=== PATIENT | male | born 1995 | race African-American/Black ===

== ENCOUNTER 2018-05-25 17:34 | Emergency (ER) | payer OTHER ==
[~2018-05-25] VITALS: Ht 182.9 cm; Wt 90.7 kg
[2018-05-25] MEDS ORDERED: LIDOCAINE 1% INJ 20 ML 20 ML VIAL INJ ONE (19:00)
--- NOTE | 2018-05-25 19:06 | ED Integumentary General ---
General Chief Complaint: Laceration Stated Complaint: TOP LIP LAC Nursing Triage Note: Bit lip while in football practice. Has small cut on inner left lip. Source: patient History of Present Illness Date Seen by Provider: May 25, 2018 Time Seen by Provider: 18:42 Initial Comments 23 yo M with inner upper lip laceration that happened around 1730 tonight at football practice. He went for the ball and accidentally hit another player's shoulder. In the process he bit down on his lips and caused a cut inside his upper lip that does gap some and is bleeding. He denies having any dental pain or loose teeth. He denies having any jaw pain. He did not bite all the way through the lip. Timing/Duration: just prior to arrival Severity: mild Location: face (inner upper lip) Allergies and Home Medications Allergies Coded Allergies: No Known Drug Allergies (Unverified , 05/25/18) Patient Home Medication List Home Medication List Reviewed: Yes Review of Systems Review of Systems Constitutional: No fever, No malaise EENTM: see HPI, mouth pain (inside of his lips), mouth swelling (upper lip); No dental problems, No epistaxis, No nose pain, No throat pain, No throat swelling Respiratory: no symptoms reported Cardiovascular: no symptoms reported Gastrointestinal: no symptoms reported Skin: see HPI Past Qsjrdtu-Tzuzrk-Upigzw Hx Past Med/Social Hx: Reviewed Nursing Past Med/Soc Hx Patient Social History Recent Foreign Travel: No Contact w/Someone Who Travel: No Recent Infectious Disease Expo: No Past Medical History Surgeries: No Physical Exam Vital Signs Vital Signs - First Documented 05/25/18 18:27 Temp 98.7 Pulse 73 Resp 16 B/P (MAP) 133/72 (92) Pulse Ox 100 Capillary Refill : Less Than 3 Seconds General Appearance: WD/WN, no apparent distress HEENT: PERRL/EOMI, other (2.5 cm laceration to the inner upper lip on the lateral side.) Neck: non-tender, full range of motion, supple, normal inspection Cardiovascular: regular rate, rhythm Respiratory: chest non-tender, lungs clear, normal breath sounds Neurologic/Psychiatric: alert, oriented x 3 Skin: normal color, warm/dry Procedures/Interventions Wound Location: Face (inner upper lip) Wound Length (cm): 3 Wound's Depth, Shape: sub Q Wound Explored: contaminated (intraoral laceration) Anesthesia: 1% Lidocaine Volume Anesthetic (ccs): 2 Wound Debrided: minimal Suture: Plain (gut) Suture Size: 4-0 Number of Sutures: 2 Layer Closure?: 1 Progress Wound was anesthetized with 1 % plain Lidocaine. He then had it cleaned with sterile water and gauze. Using 4-0 Gut suture 2 simple interrupted stitches were placed to approximate the wound edges and keep the wound from gaping so that it would heal faster and not have food particles get stuck in it. There was a small piece of skin that was hanging off of the edge of the wound that was removed so that it would not continue to hang from the cut. He tolerated the procedure well and had no immediate complications. Counseled on follow up and return precautions. Progress/Results/Core Measures Results/Orders My Orders Orders - BETTYE FELTON MD Lidocaine 1% Inj 20 Ml (Xylocaine 1% Inj (05/25/18 19:00) Medications Given in ED Current Medications Medications Dose Ordered Sig/Sandie Route Start Time Stop Time Status Last Admin Dose Admin Lidocaine HCl 20 ml ONCE ONCE INJ 05/25/18 19:00 05/25/18 19:02 DC 05/25/18 19:50 20 ML Vital Signs/I&O 05/25/18 05/25/18 18:27 20:22 Temp 98.7 98.7 Pulse 73 73 Resp 16 16 B/P (MAP) 133/72 (92) 133/72 (92) Pulse Ox 100 100 Blood Pressure Mean: 92 Progress Progress Note : Progress Note With the laceration having some gaping area will try approximating it loosely with some fast-absorbing gut stitches. Counseled patient on management of intraoral laceration that rinsing after eating as well as avoiding spicy or salty foods. Also advised to use ice or popsicles for swelling and elevate the head of the bed. Departure Impression Primary Impression: Laceration of intraoral surface of lip Qualified Codes: S01.511A - Laceration without foreign body of lip, initial encounter Disposition: 01 HOME, SELF-CARE Condition: Stable Departure-Patient Inst. Decision time for Depature: 20:09 Referrals: NO,LOCAL PHYSICIAN (PCP) Primary Care Physician Patient Instructions: Laceration Repair With Stitches (DC) Add. Discharge Instructions: Avoid salty or spicy foods. Use ice or popsicles to help apply ice and cold to the upper lip help with swelling and pain. Try to keep your head elevated at least 30-45 at all times to help minimize swelling and pain. Make sure to rinse your mouth with water if not half- strength water and hydrogen peroxide after every meal to make sure that there is no food particle stuck in your cut. The stitches will dissolve within a few days to a week. If you're having worsening problems you can follow-up or get rechecked. Make sure to use your mouthguard and you are at practice. No contact at practice for the next 2-3 days to let your mouth start to heal up. All discharge instructions reviewed with patient and/or family. Voiced understanding. Work/School Note: School/Childcare Release Date Seen in the Emergency Department: May 25, 2018 Time Dismissed from Emergency Department: 20:14 Return to School: May 26, 2018 Other Restrictions Listed Below: No physical contact at sports or practice for the next 3 days. BETTYE FELTON MD May 25, 2018 19:06
[2018-05-25 20:22] VITALS: BP 133/72
== END 2018-05-25 20:22 | disposition home or self-care (01) ==
LOC: ER FS 17:35
DX: S01.511A Laceration without foreign body of lip, initial encounter (principal); W50.0XXA Accidental hit or strike by another person, initial encounter; Y93.61 Activity, american tackle football
CPT/HCPCS: 99282